=== PATIENT | female | born 1945 | race Caucasian/White ===

== ENCOUNTER 2016-10-03 05:38 | Day surgery (SDC) | payer OTHER ==
[~2016-10-03] VITALS: Ht 152.4 cm; Wt 49.5 kg
[~2016-10-03 05:38] MED LIST: ADVAIR 250/501 DISK IH; CARDIZEM CD120 MG PO; COUMADIN4 MG PO; COUMADIN5 MG PO; DIGOX125 MCG PO; DUONEB 2.5-0.5 M3 ML AEROSOL; LASIX20 MG PO; LOVENOX60 MG/0.6 SC; PACERONE100 MG PO; VENTOLIN HFA18 GM IH
[2016-10-03] MEDS ORDERED: TIMOPTIC-0100 DROP/1 BOTH EYES (06:31)
[2016-10-03 06:34] VITALS: BP 173/74
[2016-10-03 06:59] LABS: HEMATOCRIT 36.1 % (36.0-46.0); MCH 36.5 PG (29.0-34.0); MCHC 34.6 G/DL (30.0-36.0); MCV 105.6 FL (83-99); MEAN PLAT.VOLUME 10.1 uM^3 (9.5-12.4); NRBC (%) 0.3 /100 WBC (0-0); PLATELET COUNT 246 K/uL (156-360); RED BLOOD COUNT 3.42 M/uL (3.80-5.20); WHITE BLOOD COUNT 6.4 K/uL (4.1-10.2)
[2016-10-03 07:32] LABS: PROTHROMBIN TIME 11.1 SEC (10.2-12.9)
[2016-10-03 08:03] LABS: DIGOXIN 0.9 ng/mL (0.8-2.0)
[2016-10-03 08:05] LABS: ALKALINE PHOSPHATASE 59 IU/L (3-129); ANION GAP 8 MEQ/L (2-14); CHLORIDE 96 MEQ/L (99-109); GFR ESTIMATE (CALCULATED) > 59 mL/min/; GLUCOSE 97 mg/dL (70-99); POTASSIUM 3.9 MEQ/L (3.7-5.4); SAMPLE HEMOLYSIS CHECK 0; SAMPLE ICTERIC CHECK 0; SAMPLE LIPEMIA CHECK 0; SODIUM 144 MEQ/L (136-147); TOTAL BILIRUBIN 0.9 MG/DL (0.0-1.0); UREA NITROGEN (BUN) 13 mg/dL (9-23)
[2016-10-03 09:45] VITALS: BP 141/69
[2016-10-03 10:36] VITALS: BP 137/67
== END 2016-10-03 10:39 | disposition home or self-care (01) ==
LOC: SDC 05:38
PROVIDERS: Ophthalmology
DX: H35.341 Macular cyst, hole, or pseudohole, right eye (principal); J44.9 Chronic obstructive pulmonary disease, unspecified; I11.0 Hypertensive heart disease with heart failure; I50.9 Heart failure, unspecified; I48.2 Chronic atrial fibrillation; Z79.01 Long term (current) use of anticoagulants
CPT/HCPCS: 71020; 80053; 80162; 85027; 85610; J0690; J1100; J2795; J3300